=== PATIENT | male | born 2000 | race Two or more races ===

== ENCOUNTER 2025-02-12 06:13 | Emergency (ER) | payer MEDICAID, SELFPAY ==
[2025-02-12 06:15] VITALS: BMI 35.6
[2025-02-12 06:27] VITALS: BP 138/88; PULSE 94; RESP 19; TEMP 36.8; O2SAT 96
--- NOTE | 2025-02-12 06:37 | PD.EDANKLE ---
Lower Extremity Injury RME/HPI General Chief Complaint: Ankle/Foot Injury Stated Complaint: PAIN TO L GREAT TOE Time Seen by Provider: 02/12/25 06:23 Arrival date/time: 02/12/25 06:13 RME / HPI RME / HPI Narrative: 25-year-old male with past medical history of calluses, bunions, hypertension, high cholesterol prediabetes presents to the ER complaining of pain which is worsened to his left first toe since yesterday when he was at work having to move boxes. Patient does state that he got new hiking shoes. The pain gradually worsened overnight. Denies any fever, numbness, tingling, weakness, vomiting. Related Data Home Medications ?Medication ?Instructions ?Recorded ?Confirmed lisinopril 10 mg tablet 10 mg PO DAILY 12/25/20 12/25/20 simvastatin 40 mg tablet 40 mg PO DAILY 12/25/20 12/25/20 Previous Rx's ?Medication ?Instructions ?Recorded naproxen 500 mg tablet 500 mg PO BID PRN pain #14 tabs 02/12/25 salicylic acid 6 % topical cream 1 applic topical QAM #454 grams 02/12/25 Allergies Allergy/AdvReac Type Severity Reaction Status Date / Time No Known Allergies Allergy Verified 02/12/25 06:22 ED Exam Narrative Physical exam: Constitutional: Vital Signs Reviewed. Well appearing. No acute distress. Not toxic appearing. Head: Normocephalic, atraumatic. Eyes: Conjunctiva clear. ENT: Mucous membranes moist. Neck: Trachea midline. Normal range of motion. No nuchal rigidity. Respiratory: Normal effort. No respiratory distress or accessory muscle use. Neuro: Alert and oriented. Speech normal. No focal gross motor or sensory deficits observed. Skin: Warm, dry, normal color. Psych: Pleasant. Normal affect. Cooperative. Left lower extremity: Left first digit with tenderness at the proximal plantar aspect of the great toe on the callus. No induration, crepitus, drainage, fluctuance. Cap refill less than 2 seconds. Full range of motion at MCP and IP joint of this digit. Course Quality Measures none Orders Category Date Time Status Miscellaneous Nursing Order NOW Care 02/12/25 09:24 Active XR toe LT min 2V Stat Exams 02/12/25 06:40 Completed C-Reactive Protein Stat Lab 02/12/25 07:00 Completed CBC Stat Lab 02/12/25 07:00 Completed CMP [Comprehensive Metabolic Panel] Stat Lab 02/12/25 07:00 Completed Sed Rate (ESR) Stat Lab 02/12/25 07:00 Completed Ibuprofen Tab [Motrin Tab] Med 02/12/25 06:45 Discontinued 800 mg PO X1 ONE Vital Signs Vital signs: Vital Signs Temperature 98.2 F 02/12/25 06:27 Pulse Rate 94 02/12/25 06:27 Respiratory Rate 19 02/12/25 06:27 Blood Pressure 138/88 H 02/12/25 06:27 Pulse Oximetry (%) 96 02/12/25 06:27 Oxygen Delivery Method Room Air 02/12/25 06:27 Extremity Injury, Lower MDM Narrative MDM Narrative:: MDM: Concern for pain to 1st digit and callous 2/2 sprain versus strain versus occult fracture or dislocation No infectious etiology and low suspicion for septic arthritis given lack of circumferential erythema, heat, irritable joint as patient has a fairly good mid range motion but is painless Extremity remains distally neurovascular intact with soft compartments X-ray without gross fracture or bony malalignment however there is minimal narrowing at the first metatarsophalangeal joint CBC with minimally elevated immature granulocyte number at 0.02 thousand and ALT minimally elevated at 56 otherwise no severe metabolic or electrolyte abnormality sed rate within normal limits and CRP within normal limits Plan for salysilic acid for callous, RICE therapy, flat soled shoe, pain and nausea management as needed f/u with pmd and ortho in 1-2 days, strict ER return precautions At the time of reassessment prior to discharge, the patient remains alert and oriented ?3 with GCS 15. Vitals are normal, pain is controlled, and the patient is tolerating oral intake without nausea or vomiting. The patient is agreeable to discharge and verbalizes understanding of the diagnosis, studies, treatment plan, medications (including side effects/precautions), and strict ER return precautions as discussed in the ED. All concerns were addressed, and the patient is comfortable with the plan. Patient data External records reviewed:: [facility] previous records Clinical information provided by:: patient Social determinants that could affect healthcare access:: none Patient has the following chronic illnesses:: As noted How is presenting disease/condition affected by chronic disease/condition?: exacerbated by Evaluation data The following diagnostics were reviewed and interpreted by me:: radiology exam(s) Lab and/or radiology exams considered but not ordered:: Additional Labs and radiology considered, but not ordered as they were not clinically indicated at this time. Interpretation Summary: As noted Medications / Prescriptions Medications or Prescriptions considered but not ordered:: I ordered medications based on the patient?s clinical needs and assessment, as documented in the chart. For medications not prescribed, they were not indicated for the patient's current condition, and I determined they were unnecessary at this time to avoid potential risks or complications. Medication administrations:: Medication Administration History Discontinued Medications Ibuprofen (Ibuprofen Tab 400 Mg Tablet) 800 mg PO X1 ONE Stop: 02/12/25 06:46 Last Admin: 02/12/25 07:06 Dose: 800 mg Documented By: DASIA As noted Consultations Consultation(s) initiated? (list below): No Diagnosis Extremity Injury, Lower Differential Diagnosis: ankle sprain and strain, fracture of toe and other Most likely diagnosis given after review of the tests above:: Callus Admission Indicated Admission indicated?: not indicated Admission Request Was there a request for admission?: No Disposition Plan Disposition Plan: Discharge Discharge Attestation Discharge Attestation: The patient and all family members were given an opportunity to ask questions and understood the discharge instructions. Discharge instructions specifically effects, indications for sooner follow up or return to the emergency department, and the expected course of current diagnosis. Patient condition: Stable Discharge Plan Plan Patient Disposition: HOME (Self Care) Patient condition on transfer: Stable Prescriptions/Referrals Prescriptions/Med Rec: New salicylic acid 6 % cream 1 applic topical QAM Qty: 454 0RF Rx Instructions: hydrate skin for >=5 mins before application naproxen 500 mg tablet 500 mg PO BID PRN (Reason: pain) Qty: 14 0RF Rx Instructions: take wtih food and 8 oz of water No Action simvastatin 40 mg tablet 40 mg PO DAILY Patient Comments: TAKE 1 TABLET BY MOUTH EVERY DAY IN THE EVENING lisinopril 10 mg tablet 10 mg PO DAILY Patient Comments: TAKE 1 TABLET BY MOUTH EVERY DAY Referrals: Chapis Gibbs PA-C [Primary Care Provider] - In 1 week Problem List Clinical Impression: Callus Patient/Caregiver Discharge Instructions Education Materials: Treating Corns and Calluses Additional Instructions: Avoid wearing your new shoes as this could be irritating foot, you may need wider shoes. Follow up with your primary medical doctor and a electronic engraver within 24 hours. Return to the Emergency Room immediately for any new, worsening, continuing symptoms or any concerns at all. Return to the Emergency Room within 24 hours if you are unable to follow up with your primary medical doctor and a podistarist within 24 hours. Print Language: Icelandic Stand Alone Forms: Valerie Award Info., Patient Portal Info Letter PA/COLLECTION ANALYST Supervising Physician PA/COLLECTION ANALYST Supervising Physician: Dr. White
--- NOTE | 2025-02-12 06:40 | XR_ITS ---
Examination: Toes, left foot first digit Technique: Toes AP oblique lateral 3 views Date and time of exam: February 12, 2025, 0757 hours INDICATIONS: First digit pain this week. FINDINGS: Minimal narrowing first metatarsophalangeal joint No fracture No foreign body No cortical bone destruction IMPRESSION: Minimal narrowing first metatarsophalangeal joint
[2025-02-12] MEDS: IBUPROFEN TAB 400 MG TABLET 800 MG PO (07:06)
[2025-02-12 07:23] LABS: Basophils # (Auto) 0.0 Thou/mm3 (0.0-0.2); Basophils % (Auto) 0 % (0-2.5); Eosinophils # (Auto) 0.1 Thou/mm3 (0.0-0.5); Eosinophils % (Auto) 1 % (0-10); Hematocrit 47.8 % (41.0-53.0); Hemoglobin 15.9 g/dL (13.5-16.0); Immature Granulocytes Auto 0.02 Thou/mm3 (0.00-0.00); Lymphocytes # (Auto) 2.7 Thou/mm3 (1.0-4.8); Lymphocytes % (Auto) 41 % (10-50); Mean Corpuscular HGB Conc 33.3 g/dl (31.0-37.0); Mean Corpuscular Hemoglobin 28.3 pg (25.0-35.0); Mean Corpuscular Volume 85 fL (80-100); Monocytes # (Auto) 0.7 Thou/mm3 (0.0-0.8); Monocytes % (Auto) 11 % (0-12); Neutrophils # (Auto) 3.0 Thou/mm3 (1.8-7.7); Neutrophils % (Auto) 46 % (37-80); Nucleated Red Blood Cell # 0.00 Thou/mm3 (0.00-0.00); Nucleated Red Blood Cell % 0 /100 WBC (0); Platelet Count 191 Thou/mm3 (140-440); RDW Standard Deviation 41.6 fL (35.1-43.9); Red Blood Count 5.62 Miln/mm3 (4.50-5.90); White Blood Count 6.6 Thou/mm3 (3.8-10.6)
[2025-02-12 07:31] LABS: Sed Rate (ESR) 8 mm/hr (0-15)
[2025-02-12 07:58] LABS: Alanine Aminotransferase 56 U/L (10-49); Albumin, Serum 4.9 gm/dL (3.5-5.0); Albumin/Globulin Ratio 1.7 (1.2-2.2); Alkaline Phosphatase 69 U/L (46-116); Anion Gap 11 (7-16); Aspartate Amino Transferase 31 U/L (0-34); BUN/Creatinine Ratio 13 Ratio (12-20); Bilirubin,Total 0.8 mg/dL (0.3-1.2); Blood Urea Nitrogen 12 mg/dL (9-23); C-Reactive Protein < 0.5 mg/dL (0.0-0.9); Calcium 9.4 mg/dL (8.3-10.6); Calcium (Corrected) 9.4 mg/dL (8.5-10.1); Carbon Dioxide 26.8 mMol/L (20.0-31.0); Chloride 107 mMol/L (98-107); Creatinine (Component) 0.9 mg/dL (0.6-1.3); Estimated Creatinine Clearance 172.0 mL/min (>60); Globulin 2.9 gm/dL (2.3-3.5); Glucose 94 mg/dL (74-106); Osmolality,Calculated 288 (275-295); Potassium 4.3 mMol/L (3.4-5.1); Sodium 145 mMol/L (136-145); Total Protein 7.8 gm/dL (5.7-8.2); eGFR > 60 See Note
== END 2025-02-12 10:51 | disposition home or self-care (01) ==
PROVIDERS: Emergency Provider Physician Assistant; PCP Physician Assistant
DX: L84 Corns and callosities (principal)
CPT/HCPCS: 36415; 73660; 80053; 85025; 85652; 86140; 99283; A9270